=== PATIENT | male | born 1995 | race Caucasian/White ===

== ENCOUNTER 2017-01-19 16:02 | Emergency (ER) | payer OTHER ==
[2017-01-19] MEDS ORDERED: SODIUM CHLORIDE 0.9% 1,000 ML IV ONE (16:39)
[2017-01-19 16:58] LABS: BASOPHILS % (AUTO) 0.4 %; EOSINOPHILS % (AUTO) 0.1 %; HCT - HEMATOCRIT 40.3 % (42.0-52.0); HGB - HEMOGLOBIN 13.8 g/dL (14.0-18.0); LYMPHOCYTES % (AUTO) 10.8 %; MEAN CORPUSCULAR HEMOGLOBIN 30.5 pg (27.0-31.0); MEAN CORPUSCULAR HGB CONC 34.2 g/dL (32.0-36.0); MEAN CORPUSCULAR VOLUME 89.1 fL (80.0-94.0); MEAN PLATELET VOLUME 9.1 fL (7.4-11.4); MONOCYTES % (AUTO) 10.6 %; NEUTROPHILS # (AUTO) 7.2 10^3/uL (1.5-6.6); NEUTROPHILS % (AUTO) 78.1 %; RED BLOOD COUNT 4.52 10^6/uL (4.70-6.10); RED CELL DISTRIBUTION WIDTH 12.9 % (12.0-15.0); UNCORRECTED WHITE BLOOD COUNT 9.2 x10^3/uL; WHITE BLOOD COUNT 9.2 x10^3/uL (4.8-10.8)
[2017-01-19 16:59] LABS: BILIRUBIN,URINE NEGATIVE (NEGATIVE)
[2017-01-19 17:00] LABS: UA CHARGE (STRIP ONLY) YES; UR CULTURE IF IND NOT INDICATED
[2017-01-19 17:07] LABS: RAPID STREP SCREEN REAGENT QC YELLOW (YELLOW)
[2017-01-19 17:12] LABS: ALBUMIN/GLOBULIN RATIO 1.3 (1.0-2.2); BILIRUBIN,TOTAL 0.4 mg/dL (0.2-1.0); CALCIUM 9.1 mg/dL (8.5-10.3); CREATININE 0.8 mg/dL (0.6-1.2); TOTAL PROTEIN 7.6 g/dL (6.7-8.2)
[2017-01-19] MEDS ORDERED: IOPAMIDOL-300 100 ML VIAL IVP ONE (17:45)
[2017-01-19] MEDS ORDERED: ACETAMINOPHEN 1,000 MG/100 ML 100 ML IV STA (17:57)
[2017-01-19] MEDS ORDERED: ACETAMINOPHEN 1,000 MG/100 ML 100 ML IV ONE (18:00)
--- NOTE | 2017-01-19 18:01 | ED Physician Documentation ---
PD HPI ABD PAIN - Stated complaint Stated Complaint: FEVER - Chief complaint Chief Complaint: Fever - History obtained from History obtained from: Patient - History of Present Illness Timing - onset: How many days ago (2) Timing - duration: Days (2 days of illness with some general malaise, weakness, and mild sore throat, with feeling of right lower abd fullness. Fevers since yesterday. More abd pain today and feeling more feverish.) Timing - details: Gradual onset, Still present Quality: Aching, Pain Location: Periumbilical, RLQ Radiation: No: Right flank Improved by: Laying still. No: Eating Worsened by: Moving, Palpation. No: Eating Associated symptoms: Fever (since yesterday), Nausea, Loss of appetite. No: Vomiting, Diarrhea, Dysuria, Near syncope / syncope, Testicular pain Similar symptoms before: Has not had sx before Recently seen: Not recently seen Review of Systems Constitutional: reports: Fever, Chills Nose: denies: Rhinorrhea / runny nose, Congestion Throat: reports: Sore throat (mild) Cardiac: denies: Chest pain / pressure Respiratory: denies: Dyspnea, Cough GI: reports: Abdominal Pain, Nausea. denies: Abdominal Swelling, Vomiting, Constipation, Diarrhea, Bloody / black stool : denies: Dysuria, Frequency Skin: denies: Rash, Lesions Neurologic: reports: Generalized weakness. denies: Focal weakness, Numbness Endocrine: denies: Weight loss Immunocompromised: denies: Immunocompromised PD PAST MEDICAL HISTORY - Past Medical History Past Medical History: No - Past Surgical History Past Surgical History: Yes Ortho: Other - Present Medications Home Medications: Ambulatory Orders Medication Instructions Recorded Confirmed No Known Home Medications [No 01/19/17 01/19/17 Known Home Medications] - Allergies Allergies/Adverse Reactions: Allergies Allergy/AdvReac Type Severity Reaction Status Date / Time No Known Drug Allergies Allergy Verified 01/19/17 16:13 - Social History Does the pt smoke?: No Smoking Status: Never smoker Does the pt drink ETOH?: Yes ETOH Use: Beer Does the pt have substance abuse?: No - Family History Family history: reports: Non contributory - Immunizations Immunizations are current?: Yes PD ED PE NORMAL - Vitals Vital signs reviewed: Yes - General General: Alert and oriented X 3, Well developed/nourished - HEENT HEENT: Moist mucous membranes, Pharynx benign - Neck Neck: Supple, no meningeal sign, No adenopathy - Cardiac Cardiac: RRR, No murmur - Respiratory Respiratory: Clear bilaterally - Abdomen Abdomen: Normal bowel sounds, Soft, Non distended, No organomegaly, Other ( Tender RLQ with some percussion tenderness but not referred nor rebound. ) - Male Male : Other (normal genitalia without tenderness, hernia, rash. ) - Rectal Rectal: Deferred - Back Back: No CVA TTP - Derm Derm: Normal color, Warm and dry - Extremities Extremities: Normal ROM s pain - Neuro Neuro: Alert and oriented X 3, No motor deficit, Normal speech - Psych Psych: Normal mood, Normal affect Results - Vitals Vitals: Vital Signs - 24 hr 01/19/17 01/19/17 01/19/17 16:11 17:52 18:51 Temperature 38.4 C H 39.6 C H 37.9 C H Heart Rate 117 H 110 H 110 H Respiratory 16 16 18 Rate Blood Pressure 125/75 125/67 120/55 L O2 Saturation 99 100 95 Oxygen O2 Source Room air - Labs Labs: Laboratory Tests 01/19/17 01/19/17 01/19/17 16:37 16:37 16:50 WBC 9.2 RBC 4.52 L Hgb 13.8 L Hct 40.3 L MCV 89.1 MCH 30.5 MCHC 34.2 RDW 12.9 Plt Count 224 MPV 9.1 Neut # 7.2 H Lymph # 1.0 L [place] # 1.0 Eos # 0.0 Baso # 0.0 Absolute Nucleated RBC 0.00 Nucleated RBCs 0.0 Sodium Potassium Chloride Carbon Dioxide Anion Gap BUN Creatinine Estimated GFR (MDRD) Glucose Calcium Total Bilirubin AST ALT Alkaline Phosphatase Total Protein Albumin Globulin Albumin/Globulin Ratio Lipase Urine Color Urine Clarity Urine pH Ur Specific [place] Urine Protein Urine Glucose (UA) Urine Ketones Urine Occult Blood Urine Nitrite Urine Bilirubin Urine Urobilinogen Ur Leukocyte Esterase Ur Microscopic Review Urine Culture Comments Influenza A (Rapid) Negative Influenza B (Rapid) Negative Influenza Types A,B Ag - Group A Strep Rapid Negative 01/19/17 01/19/17 16:50 16:50 WBC RBC Hgb Hct MCV MCH MCHC RDW Plt Count MPV Neut # Lymph # [place] # Eos # Baso # Absolute Nucleated RBC Nucleated RBCs Sodium 136 Potassium 4.0 Chloride 100 L Carbon Dioxide 28 Anion Gap 8.0 BUN 16 Creatinine 0.8 Estimated GFR (MDRD) 120 Glucose 125 H Calcium 9.1 Total Bilirubin 0.4 AST 18 ALT 17 Alkaline Phosphatase 56 Total Protein 7.6 Albumin 4.3 Globulin 3.3 Albumin/Globulin Ratio 1.3 Lipase 16 L Urine Color YELLOW Urine Clarity CLEAR Urine pH 6.0 Ur Specific [place] 1.010 Urine Protein NEGATIVE Urine Glucose (UA) NEGATIVE Urine Ketones NEGATIVE Urine Occult Blood NEGATIVE Urine Nitrite NEGATIVE Urine Bilirubin NEGATIVE Urine Urobilinogen 0.2 (NORMAL) Ur Leukocyte Esterase NEGATIVE Ur Microscopic Review NOT INDICATED Urine Culture Comments NOT INDICATED Influenza A (Rapid) Influenza B (Rapid) Influenza Types A,B Ag Group A Strep Rapid - Rads (name of study) abd CT Radiology: Prelim report reviewed (several small mesenteric nodes, normal appendix, no other acute process.) PD MEDICAL DECISION MAKING - ED course Complexity details: considered differential (concern for appy with the RLQ tenderness and fever, though the onset of fever might seem too early for it. Will check UA, CBC, CT abd. ), d/w patient Departure - Departure Disposition: 01 Home, Self Care Clinical Impression: Mesenteric adenitis, Viral illness Fever Qualifiers: Fever type: unspecified Qualified Code(s): R50.9 - Fever, unspecified Abdominal pain Qualifiers: Abdominal location: right lower quadrant Qualified Code(s): R10.31 - Right lower quadrant pain Condition: Stable Record reviewed to determine appropriate education?: Yes Instructions: ED Adenitis Mesenteric, ED Viral Syndrome Follow-Up: MILADIS GILBERT [Primary Care Provider] - Comments: Drink lots of fluids. Ibuprofen 400-600 mg three times daily and add Tylenol 650 mg every 4 hours if needed for fevers/pains. Rest off work for 2-3 days. Recheck with PMD in 2-3 days if not improved. Forms: Activity restrictions Discharge Date/Time: 01/19/17 18:54
--- NOTE | 2017-01-19 18:15 | CT Preliminary Report ---
Exam: CT Abdomen/Pelvis W/ IMPRESSION: 1. Several borderline enlarged right lower quadrant mesenteric lymph nodes, likely reactive. 2. Normal appendix. No bowel obstruction, fluid collection or other acute inflammatory process. [facility] SITE ID: [id number]
--- NOTE | 2017-01-19 18:17 | CT Report ---
EXAM: CT ABDOMEN AND PELVIS EXAM DATE: 01/19/2017 05:47 PM. CLINICAL HISTORY: Fever, RLQ pain since yesterday. COMPARISONS: None. TECHNIQUE: Routine helical CT imaging was performed through the abdomen and pelvis. IV contrast: 100 mL Isovue-300. Enteric contrast: No. Reconstructions: Coronal and sagittal. In accordance with CT protocol optimization, one or more of the following dose reduction techniques w ere utilized for this exam: automated exposure control, adjustment of mA and/or KV based on patient s ize, or use of iterative reconstructive technique. FINDINGS: Lung Bases: Unremarkable. Liver: Normal. No masses. Gallbladder/Bile Ducts: Unremarkable. Spleen: Normal. Pancreas: Normal. Adrenal Glands: Normal. Kidneys: Normal. No masses or hydronephrosis. Peritoneal Cavity/Bowel: Several right lower quadrant mesenteric lymph nodes measuring up to 1.1 cm. No bowel obstruction. No free air or fluid collections. The appendix is well visualized and normal. Pelvic Organs: Normal. The bladder and visualized pelvic organs are within normal limits. Vasculature: No aneurysms or other significant abnormality. Bones: No significant abnormality. Other: None. IMPRESSION: 1. Several borderline enlarged right lower quadrant mesenteric lymph nodes, likely reactive. 2. Normal appendix. No bowel obstruction, fluid collection or other acute inflammatory process. [facility] Referring Provider Line: [phone] SITE ID: [id number]
[2017-01-19] MEDS ORDERED: KETOROLAC 60 MG/2 ML VIAL IVP STA (18:21)
[2017-01-19] MEDS ORDERED: KETOROLAC 60 MG/2 ML VIAL ONE (18:24)
[2017-01-19 18:52] VITALS: BP 120/55
== END 2017-01-19 18:54 | disposition home or self-care (01) ==
LOC: ED 16:02
DX: I88.0 Nonspecific mesenteric lymphadenitis (principal); B34.9 Viral infection, unspecified; R50.9 Fever, unspecified; R10.33 Periumbilical pain
CPT/HCPCS: 36415; 74177; 80053; 81003; 83690; 85025; 87070; 87275; 87276; 87430; 96361; 96374; 96375; 99284; J0131; Q9967; 81001; 87086

== ENCOUNTER 2018-12-08 00:17 | Emergency (ER) | payer OTHER ==
[2018-12-08] MEDS ORDERED: SODIUM CHLORIDE 0.9% 1,000 ML IV ONE (00:38)
[2018-12-08] MEDS ORDERED: ACETAMINOPHEN 325 MG TABLET PO STA (00:39)
--- NOTE | 2018-12-08 00:40 | ED Physician Documentation ---
PD HPI FEVER - Stated complaint Stated Complaint: FEVER - Chief complaint Chief Complaint: Fever - History obtained from History obtained from: Patient - History of Present Illness Timing - onset: Yesterday Timing details: Gradual onset Associated symptoms: Ear pain, Sore throat, Abdominal pain. No: Chills, Sweats, Nasal congestion, Rhinorrhea, Dry cough, Productive cough, Urinary symptoms, Rash/skin lesion Contributing factors: Other (Received his second anthrax vaccination 3 days ago). 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 It was 38.6. He has had back pain today that he rates it a 5 out of 10 and points throughout the entire lumbar region. Denies any unusual pain radiating down the legs. He has a sore throat with a little pressure across the frontal region. He had a stuffy nose over the past week but that sexually cleared up in the past couple of days. He does have ear pain bilaterally. He is been nauseous without much of an appetite. He did eat before going to work today around 2 PM. He had some loose stool today no vomiting. He does complain of some lower abdominal discomfort bu t cannot really describe it past that. Denies dysuria. The patient's felt a little lightheaded but has not passed out. He did not take any medications for his fever and has not been around anyone who is been ill. He is in the and received his second anthrax vaccine 3 days ago. No prior abdominal surgeries. Review of Systems Constitutional: reports: Fever Eyes: reports: Reviewed and negative Ears: reports: Ear pain Nose: reports: Congestion (Resolved), Sinus pressure / pain (Frontal). denies: Rhinorrhea / runny nose Throat: reports: Sore throat Cardiac: denies: Palpitations Respiratory: denies: Cough GI: reports: Abdominal Pain, Nausea, Diarrhea. denies: Vomiting : denies: Dysuria, Frequency Skin: denies: Rash Musculoskeletal: reports: Back pain (Lumbar) Neurologic: reports: Generalized weakness. denies: LOC PD PAST MEDICAL HISTORY - Past Surgical History Past Surgical History: Yes Ortho: Other - Present Medications Home Medications: Ambulatory Orders Medication Instructions Recorded Confirmed No Known Home Medications 01/19/17 01/19/17 - Allergies Allergies/Adverse Reactions: Allergies Allergy/AdvReac Type Severity Reaction Status Date / Time No Known Drug Allergies Allergy Verified 01/19/17 16:13 - Social History Does the pt smoke?: No Smoking Status: Never smoker Does the pt drink ETOH?: Yes Does the pt have substance abuse?: No - Immunizations Immunizations are current?: Yes PD ED PE NORMAL - Vitals Vital signs reviewed: Yes - General General: Alert and oriented X 3, No acute distress, Well developed/nourished - HEENT HEENT: Atraumatic, PERRL, EOMI, Ears normal, Moist mucous membranes, Pharynx benign, Other (No tonsillar enlargement or exudate) - Neck Neck: Supple, no meningeal sign, No adenopathy - Cardiac Cardiac: RRR, No murmur - Respiratory Respiratory: No respiratory distress, Clear bilaterally - Abdomen Abdomen: Normal bowel sounds, Soft, Other (Diffusely tender through the abdomen particularly in the left lower quadrant) - Derm Derm: Normal color, Warm and dry, No rash - Neuro Neuro: Alert and oriented X 3, 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, No motor deficit, No sensory deficit, Normal speech - Psych Psych: Normal mood, Normal affect Results - Vitals Vitals: Vital Signs - 24 hr 12/08/18 12/08/18 00:20 01:36 Temperature 38.6 C H 37.8 C H Heart Rate 109 H 95 Respiratory 20 18 Rate Blood Pressure 127/83 H 116/58 L O2 Saturation 97 96 Oxygen O2 Source Room air - Labs Labs: Laboratory Tests 12/08/18 12/08/18 12/08/18 00:50 00:50 00:55 WBC 14.1 H RBC 4.86 Hgb 15.1 Hct 44.3 MCV 91.2 MCH 31.0 MCHC 34.0 RDW 13.5 Plt Count 261 MPV 9.3 Neut # (Auto) 12.6 H Lymph # (Auto) 0.7 L [place] # (Auto) 0.7 Eos # (Auto) 0.0 Baso # (Auto) 0.1 Absolute Nucleated RBC 0.02 Nucleated RBC % 0.1 Sodium 137 Potassium 3.8 Chloride 98 L Carbon Dioxide 26 Anion Gap 13.0 BUN 11 Creatinine 0.8 Estimated GFR (MDRD) 118 Glucose 119 H Calcium 9.7 Total Bilirubin 0.7 AST 20 ALT 17 Alkaline Phosphatase 53 Total Protein 8.7 H Albumin 5.1 Globulin 3.6 Albumin/Globulin Ratio 1.4 Lipase 24 Urine Color YELLOW Urine Clarity CLEAR Urine pH 6.5 Ur Specific [place] 1.010 Urine Protein NEGATIVE Urine Glucose (UA) NEGATIVE Urine Ketones 15 H Urine Occult Blood NEGATIVE Urine Nitrite NEGATIVE Urine Bilirubin NEGATIVE Urine Urobilinogen 0.2 (NORMAL) Ur Leukocyte Esterase NEGATIVE Ur Microscopic Review NOT INDICATED Urine Culture Comments NOT INDICATED PD MEDICAL DECISION MAKING - ED course Complexity details: re-evaluated patient, d/w patient, d/w family ED course: Patient's white blood cell count was 14.1. He was febrile. Normal urinalysis. Throat does not look like strep. Still had abdominal discomfort after Tylenol and temperature was down to 100.1. I elected to CT abdomen and pelvis to rule out appendicitis. The CT was read by the radiologist as negative for any acute abnormality and comment of normal appendix. On reevaluation the patient was still rating his abdominal discomfort and low back pain at a 5 out of 10. We discussed the results of the CT scan and at this point I see no clear indication for antibiotics. Patient will be discharged with instructions to rest and drink plenty of liquids. I did give him a dose of Toradol prior to discharge. Departure - Departure Disposition: 01 Home, Self Care Clinical Impression: Fever Qualifiers: Fever type: unspecified Qualified Code(s): R50.9 - Fever, unspecified Abdominal pain Qualifiers: Abdominal location: unspecified location Qualified Code(s): R10.9 - Unspecified abdominal pain Condition: Good Instructions: ED Fever Unconf Cause Follow-Up: MELISSA MCMAHON MD [Primary Care Provider] - Comments: Home and rest. Drink lots of water. May use Tylenol or ibuprofen if continued fever. Recheck if the fever persists for 48 hours or is associated with worsening abdominal pain, vomiting, worsening sore throat, cough or shortness of breath.
[2018-12-08 01:00] LABS: BILIRUBIN,URINE NEGATIVE (NEGATIVE); GLUCOSE, URINE (UA) NEGATIVE (NEGATIVE); KETONES,URINE (UA) 15 mg/dL (NEGATIVE); LEUKOCYTE ESTERASE, URINE NEGATIVE (NEGATIVE); NITRITE,URINE NEGATIVE (NEGATIVE); OCCULT BLOOD,URINE NEGATIVE (NEGATIVE); PH,URINE 6.5 PH (5.0-7.5); PROTEIN,URINE NEGATIVE (NEGATIVE); UROBILINOGEN,URINE 0.2 (NORMAL) E.U./dL (NORMAL)
[2018-12-08 01:01] LABS: BASOPHILS # (AUTO) 0.1 10^3/uL (0.0-0.1); BASOPHILS % (AUTO) 0.8 %; HGB - HEMOGLOBIN 15.1 g/dL (14.0-18.0); LYMPHOCYTES # (AUTO) 0.7 10^3/uL (1.5-3.5); LYMPHOCYTES % (AUTO) 4.8 %; MEAN CORPUSCULAR VOLUME 91.2 fL (80.0-94.0); MEAN PLATELET VOLUME 9.3 fL (7.4-11.4); MONOCYTES # (AUTO) 0.7 10^3/uL (0.0-1.0); MONOCYTES % (AUTO) 5.2 %; NEUTROPHILS # (AUTO) 12.6 10^3/uL (1.5-6.6); NEUTROPHILS % (AUTO) 89.2 %; PLT - PLATELET COUNT 261 10^3/uL (130-450); RED BLOOD COUNT 4.86 10^6/uL (4.70-6.10); RED CELL DISTRIBUTION WIDTH 13.5 % (12.0-15.0); WHITE BLOOD COUNT 14.1 x10^3/uL (4.8-10.8)
[2018-12-08 01:03] LABS: CLARITY,URINE CLEAR (CLEAR)
[2018-12-08 01:12] LABS: ALBUMIN 5.1 g/dL (3.2-5.5); ALBUMIN/GLOBULIN RATIO 1.4 (1.0-2.2); BILIRUBIN,TOTAL 0.7 mg/dL (0.2-1.0); CALCIUM 9.7 mg/dL (8.5-10.3); CREATININE 0.8 mg/dL (0.6-1.2); TOTAL PROTEIN 8.7 g/dL (6.7-8.2)
[2018-12-08] MEDS ORDERED: IOVERSOL 320 100 ML VIAL IVP ONE ×2 (01:41→02:00)
--- NOTE | 2018-12-08 02:29 | CT Report ---
Reason: abdominal pain; fever Procedure Date: 12/08/2018 Accession Number: [id number] / [id number] Procedure: CT - Abdomen/Pelvis W CPT Code: FULL RESULT: EXAM: CT ABDOMEN AND PELVIS EXAM DATE: 12/08/2018 02:03 AM. CLINICAL HISTORY: Abdominal pain; fever. COMPARISONS: ABDOMEN/PELVIS W/ 01/19/2017 5:33 PM. TECHNIQUE: Routine helical CT imaging was performed through the abdomen and pelvis. IV contrast: 100 mL Optiray 320. Enteric contrast: No. Reconstructions: Coronal and sagittal. In accordance with CT protocol optimization, one or more of the following dose reduction techniques were utilized for this exam: automated exposure control, adjustment of mA and/or KV based on patient size, or use of iterative reconstructive technique. FINDINGS: ABDOMEN: Liver: No significant abnormality. Stomach/Distal Esophagus: No significant abnormality. Gallbladder: No significant abnormality. Bile Ducts: No significant abnormality. Pancreas: No significant abnormality. Spleen: No significant abnormality. Kidneys: No suspicious solid appearing lesion. No hydronephrosis. Adrenals: No significant abnormality. Bowel: No obstruction. Average fecal residual. Appendix: Normal. Lymph Nodes: No pathologically enlarged nodes. Vasculature: Normal caliber aorta. Fluid: No significant free fluid. Abdominal Wall: No significant abnormality. Other: No significant abnormality. PELVIS: Prostate and Seminal Vesicles: No significant abnormality. Bladder: No significant abnormality. Lymph Nodes: No pathologically enlarged nodes. Fluid: No significant free fluid. Other: None. BONES: No suspicious bony lesions. LOWER CHEST: No significant consolidation or effusion. IMPRESSION: No acute abdominal or pelvic abnormality. [facility]
[2018-12-08] MEDS ORDERED: KETOROLAC 30 MG/ML VIAL IVP STA (02:40)
[2018-12-08 02:47] VITALS: BP 113/63
== END 2018-12-08 03:03 | disposition home or self-care (01) ==
LOC: ED 00:17
DX: R50.9 Fever, unspecified (principal); R10.32 Left lower quadrant pain; M54.5 Low back pain; R11.0 Nausea; R09.81 Nasal congestion
CPT/HCPCS: 36415; 74177; 80053; 81003; 83690; 85025; 96361; 96374; 99283; A9270; Q9967; 81001; 87086

== ENCOUNTER 2020-06-12 13:16 | Outpatient (CLI) | payer OTHER ==
[2020-06-12] MEDS ORDERED: BUFFERED LIDOCAINE 10 ML SYRINGE ONE (13:34)
[2020-06-12] MEDS ORDERED: GADOBUTROL 7.5 MMOL/7.5 ML VIAL ONE (13:35)
[2020-06-12] MEDS ORDERED: BUFFERED LIDOCAINE 10 ML SYRINGE IU ONE (15:06)
[2020-06-12] MEDS ORDERED: iohexoL-240 10 ML VIAL IVP ONE (15:07)
[2020-06-12] MEDS ORDERED: GADOBUTROL 7.5 MMOL/7.5 ML VIAL IVP ONE (15:08)
--- NOTE | 2020-06-12 15:40 | XRAY Report ---
PROCEDURE: Arthrogram Needle Placement INDICATIONS: RT WRIST PAIN, RT WRIST SPRAIN CONTRAST: CONTRAST: Gadavist 0.1cc FLUOROSCOPY TIME: FLUORO TIME: 20 sec and NUMBER IMAGES: 2 TECHNIQUE: After informed consent had been obtained, the wrist was examined fluoroscopically, and a site chosen for injection of the radiocarpal compartment from a dorsal approach. Skin was prepped and draped in the usual fashion and 1% lidocaine infiltrated from the skin down to the articular surface. A hypode rmic needle was then introduced into the articular space and a modest amount of contrast medium was i nstilled confirming intra-articular needle tip placement. This was followed by approximately 4 mL of a dilute gadolinium solution. Needle was removed and dressing was applied. The patient experienced no complications throughout the procedure and left the fluoroscopic suite in no apparent distress. FINDINGS: A single fluoroscopic spot image demonstrates intra-articular location to injected iodinated contrast . IMPRESSION: Successful fluoroscopic-guided administration of dilute Gadolinium solution for wrist MR arthrogram. Reviewed by: Regi Birch MD on 06/12/2020 3:39 PM PST Approved by: Regi Birch MD on 06/12/2020 3:39 PM PST Station ID: [id number]
--- NOTE | 2020-06-12 15:52 | MRI Report ---
PROCEDURE: Arthrogram Wrist RT INDICATIONS: RT WRIST PAIN, RT WRIST SPRAIN CONTRAST: 3 to 4 mL of diluted intra-articular gadolinium contrast. TECHNIQUE: After the administration of 3-4 mL of dilute intra-articular Gadolinium contrast into the radiocarpal compartment, coronal T1 spin echo with fat saturation and T2 fast spin echo with fat saturation, axi al T1 spin echo and T2 fast spin echo with fat saturation, sagittal T1 spin echo with and without fat saturation through the wrist. COMPARISON: None. FINDINGS: Image quality: Excellent. Bones and cartilage: The carpal bones are normally aligned. No bone marrow contusions or fractures. No evidence for avascular necrosis. Overlying cartilage surfaces appear normal. Carpal ligaments: There is full-thickness perforation involving central and volar portion of the sca pholunate ligament with gadolinium contrast extending into mid carpal compartment. The lunotriquetral ligament is intact. The radioscaphocapitate and radiolunotriquetral ligaments appear intact. The de ltoid ligament and short radiolunate ligament also appear normal. Dorsally, the radioscaphotriquetra l ligament appears intact where visualized. On sagittal images, the pisohamate ligament appears inta ct. Triangular fibrocartilage complex: The triangular fibrocartilage appears intact, without gadolinium extravasation into the distal radioulnar joint. The adjacent meniscal homolog appears normal. The e xtensor carpi ulnaris tendon is normal in location and morphology. Tendons and soft tissues: The carpal tunnel structures appear normal, including the median nerve. T he ulnar nerve appears normal within Guyon?s canal. All six extensor tendon compartments demonstrate normal morphology, without pathologic tendon sheath fluid. There is suggestion of a 5 x 6 x 6 mm [place] glion cyst over [place] and medial aspect of wrist joint just distal to ulnar styloid. IMPRESSION: 1. 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 Lunotriquetral ligament is intact. 2. Triangular fibrocartilage complex is grossly intact. 3. Suggestion of 6 x 5 x 6 mm ganglion cyst over ulnar and volar aspect of wrist joint just distal to ulnar styloid. 4. No marrow edema. No fracture or dislocation. Reviewed by: Jewel Grant MD on 06/12/2020 3:51 PM PST Approved by: Jewel Grant MD on 06/12/2020 3:51 PM PST Station ID: [id number]
== END 2020-06-12 13:17 | disposition home or self-care (01) ==
LOC: DI 13:16
PROVIDERS: ATTEND Orthopaedic Surgery
DX: S63.591A Other specified sprain of right wrist, initial encounter (principal)
CPT/HCPCS: 25246; 73222; 77002; A9585; Q9966

== ENCOUNTER 2020-07-09 15:39 | Emergency (ER) | payer OTHER ==
[2020-07-09 15:45] VITALS: BP 145/61
--- NOTE | 2020-07-09 16:10 | ED Physician Documentation ---
PD HPI SKIN - Stated complaint Stated Complaint: RIGHT FINGER PX - Chief complaint Chief Complaint: Wound - History obtained from History obtained from: Patient - History of Present Illness Timing - onset: How many days ago (4) Timing - duration: Days (4) Timing - details: Gradual onset, Still present Location: RLE Quality / character: Painful, Discolored, Swelling. No: Draining Similar symptoms before: Has not had sx before Recently seen: Not recently seen - Additional information Additional information: 24 y/o male has developed swelling and redness to the right middle finger and he has tried to pop it with a needle and did not get anything out. Swelling is worse and there is no fever or lymphangitic streaking. Review of Systems Constitutional: denies: Fever Throat: denies: Sore throat Cardiac: denies: Palpitations Respiratory: denies: Dyspnea, Cough GI: denies: Abdominal Pain, Nausea, Vomiting : denies: Dysuria PD PAST MEDICAL HISTORY - Past Surgical History Past Surgical History: Yes Ortho: Other - Present Medications Home Medications: Ambulatory Orders Medication Instructions Recorded Confirmed Cephalexin [Keflex] 500 mg PO Q6H #28 capsule 07/09/20 Gabapentin [Neurontin] 100 mg PO TID 07/09/20 07/09/20 - Allergies Allergies/Adverse Reactions: Allergies Allergy/AdvReac Type Severity Reaction Status Date / Time No Known Drug Allergies Allergy Verified 07/09/20 15:44 - Social History Does the pt smoke?: No Smoking Status: Never smoker Does the pt drink ETOH?: Yes Does the pt have substance abuse?: No - Immunizations Immunizations are current?: Yes PD ED PE NORMAL - Vitals Vital signs reviewed: Yes (hypertensive ) - General General: Alert and oriented X 3, No acute distress, Well developed/nourished - HEENT HEENT: Atraumatic, PERRL, EOMI - Respiratory Respiratory: No respiratory distress - Extremities Extremities: No deformity, Other (over the dorsal surface of the right middle finger over the cuticle there is swelling erythema and tenderness without fluctuance and without drainage. 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
== END 2020-07-09 16:28 | disposition home or self-care (01) ==
LOC: ED 15:39
DX: L03.011 Cellulitis of right finger (principal)
CPT/HCPCS: 99282; 99284

== ENCOUNTER 2021-04-18 14:49 | Outpatient (CLI) | payer OTHER ==
[2021-04-18] MEDS ORDERED: GADOBUTROL 15 MMOL/15 ML VIAL ONE (15:06)
--- NOTE | 2021-04-18 17:47 | MRI Report ---
PROCEDURE: IACS W/WO INDICATIONS: SENSORINEURAL HEARING LOSS CONTRAST: IV CONTRAST: Gadavist ml: 8.8 TECHNIQUE: Noncontrast sagittal T1 spin echo, axial FLAIR, axial gradient echo, axial diffusion and ADC through the brain. Axial thin-slice 3D CISS, coronal balanced GE, axial T1 spin echo with fat saturation thr ough the internal auditory canals. After the administration of contrast, thin slice axial and beach l T1 spin echo with fat saturation through the internal auditory canals, and axial T1 spin echo with fat saturation through the brain. COMPARISON: None. FINDINGS: Image quality: Excellent. Cerebellopontine angles: No cerebellopontine angle masses. Inner ear structures appear normally for med. No suspicious enhancement in the internal auditory canal or along the course of the 7th cranial nerve. CSF spaces: Ventricles are normal in size and shape. No extra-axial fluid collections. Basal ciste rns are patent. Brain: No intracranial bleeds or mass effects. Swift-white matter interface is intact. No abnormal intracranial enhancement. Diffusion weighted images demonstrate no acute ischemic insults. Brainste m appears normal. Normal intravascular flow voids are present. An "empty sella" is seen, with a nor mal pituitary tissue flattened along the floor of the sella turcica. Skull and face: Calvarial marrow signal is normal. Orbits appear normal. Sinuses: Sinuses and mastoids are clear. IMPRESSION: No imaging explanation is found for the patient's presenting symptoms. Specifically, no findings of masses or abnormal enhancement can be seen within the internal auditory canals or within the cerebellopontine angle cisterns. Note is made of an "empty sella." This is typically a benign, incidental finding of no clinical conse quence. However, can be seen in patients with idiopathic intracranial hypertension. No definite addit ional findings of intracranial hypertension can be seen. Reviewed by: James Roa MD on 04/18/2021 4:45 PM [email or web address] Approved by: James Roa MD on 04/18/2021 4:45 PM AKLIZBETH Station ID: [id number]
[2021-04-19] MEDS ORDERED: GADOBUTROL 15 MMOL/15 ML VIAL IVP ONE (07:15)
== END 2021-04-18 14:50 | disposition home or self-care (01) ==
LOC: DI 14:49
PROVIDERS: ATTEND Family Medicine
DX: H90.5 Unspecified sensorineural hearing loss (principal)
CPT/HCPCS: 70543; A9585